=== PATIENT | male | born 1980 | race African-American/Black ===

== ENCOUNTER 2018-08-25 19:27 | Emergency (ER) | payer OTHER ==
[~2018-08-25] VITALS: Ht 170.2 cm; Wt 79.5 kg
[2018-08-25 19:27] VITALS: BP 144/82
[~2018-08-25 19:27] MED LIST: ARIP2TAB PO; FLON1SPR; VYVA1CAP PO; ZYRT10CA PO
[2018-08-25] MEDS ORDERED: MULT1CHW44 PO (19:42)
[2018-08-25] MEDS ORDERED: IBUP-1022 PO (20:08)
[2018-08-25] MEDS ORDERED: OSEL75CA PO (20:14)
[2018-08-25 20:40] LABS: INFLUENZA A AMPLIFICATION NEGATIVE (NEGATIVE); INFLUENZA B AMPLIFICATION NEGATIVE (NEGATIVE)
== END 2018-08-25 20:22 | disposition home or self-care (01) ==
LOC: M ED 19:27
DX: J06.9 Acute upper respiratory infection, unspecified (principal); F90.9 Attention-deficit hyperactivity disorder, unspecified type